=== PATIENT | female | born 1970 | race Caucasian/White ===

== ENCOUNTER 2018-04-14 15:59 | Emergency (ER) | payer MEDICAID ==
[~2018-04-14] VITALS: Ht 160 cm; Wt 110.2 kg
[~2018-04-14 15:59] MED LIST: ACET1TAB12 PO; ALBU8.5H8 IH
[2018-04-14 16:39] LABS: BASOPHILS # (AUTO) 0.1 X10'3 (0-0.2); BASOPHILS % (AUTO) 0.7 % (0-1); EOSINOPHILS # (AUTO) 0.1 X10'3 (0-0.9); EOSINOPHILS % (AUTO) 1.5 % (0-6); HEMATOCRIT 38.1 % (35.0-45.0); HEMOGLOBIN 12.8 g/dl (12.0-16.0); LYMPHOCYTES # (AUTO) 2.3 X10'3 (1.1-4.8); LYMPHOCYTES % (AUTO) 27.1 % (21-51); MEAN CORPUSCULAR HEMOGLOBIN 29.4 PG (27.0-31.0); MEAN CORPUSCULAR HGB CONC 33.5 % (33.0-36.5); MEAN CORPUSCULAR VOLUME 87.5 FL (78-98); MONOCYTES # (AUTO) 0.6 X10'3 (0-0.9); MONOCYTES % (AUTO) 6.6 % (2-12); NEUTROPHILS # (AUTO) 5.6 X10'3 (1.8-7.7); NEUTROPHILS % (AUTO) 64.1 % (42-75); PLATELET COUNT 246 X10'3 (140-440); RED BLOOD COUNT 4.35 X10'6 (4.20-5.60); RED CELL DISTRIBUTION WIDTH 17.3 % (11.5-14.5); WHITE BLOOD COUNT 8.7 X10'3 (4.5-11.0)
[2018-04-14 17:06] LABS: ALANINE AMINOTRANSFERASE 36 U/L (12-78); ALBUMIN 3.4 G/DL (3.4-5.0); ALBUMIN/GLOBULIN RATIO 0.9 (1.1-1.5); ALKALINE PHOSPHATASE 72 IU/L (46-116); AMYLASE 59 U/L (25-115); ANION GAP 10 (8-16); ASPARTATE AMINO TRANSFERASE 22 U/L (10-37); BILIRUBIN,TOTAL 0.4 MG/DL (0.1-1.0); BLOOD UREA NITROGEN 18 MG/DL (7-18); BUN/CREATININE RATIO 19.8 (6.6-38.0); CALCIUM 8.8 MG/DL (8.5-10.1); CHLORIDE 107 MMOL/L (99-107); CREATININE 0.91 MG/DL (0.40-0.90); GLUCOSE 85 MG/DL (70-104); LIPASE 348 U/L (73-393); POTASSIUM 3.9 MMOL/L (3.5-5.1); SODIUM 142 MMOL/L (135-145); TOTAL CARBON DIOXIDE 24.8 MMOL/L (24-32); TOTAL PROTEIN 7.2 G/DL (6.4-8.2); eGFR 66 ML/MIN
[2018-04-14 17:58] LABS: URINE HCG NEGATIVE (NEG)
[2018-04-14 18:01] LABS: CLARITY,URINE CLEAR (Clear); COLOR,URINE YELLOW (Yellow); GLUCOSE, URINE NEGATIVE (Neg); KETONES,URINE NEGATIVE (Neg); LEUKOCYTE ESTERASE ,URINE TRACE (Neg); NITRITES, URINE NEGATIVE (Neg); OCCULT BLOOD,URINE NEGATIVE (Neg); PH,URINE 5.5 (4.8-8.0); PROTEIN,URINE NEGATIVE (Neg); UROBILINOGEN,URINE 0.2 E.U/dL (0.2-1.0)
[2018-04-14 18:06] LABS: UA COLLECTION TYPE CLN CATCH MIDSTREAM
[2018-04-14 18:07] LABS: BACTERIA,URINE FEW /HPF (Neg); MUCUS STRANDS FEW /LPF (Neg); RBC,URINE 0-2 /HPF (0-2); SQUAMOUS EPITHELIAL CELL,UR FEW /LPF (FEW); WBC,URINE 0-4 /HPF (0-4)
[2018-04-14 19:56] VITALS: BP 113/48
== END 2018-04-14 19:58 | disposition home or self-care (01) ==
LOC: ER 16:00
DX: R10.12 Left upper quadrant pain (principal); R11.0 Nausea; R14.2 Eructation; G43.909 Migraine, unspecified, not intractable, without status migrainosus; Z98.890 Other specified postprocedural states; Z88.1 Allergy status to other antibiotic agents; Z91.018 Allergy to other foods; Z79.899 Other long term (current) drug therapy
CPT/HCPCS: 36415; 71045; 76700; 80053; 81001; 81025; 82150; 83690; 85025; 85610; 87088; 93005; 99285

== ENCOUNTER 2018-12-24 10:31 | Emergency (ER) | payer MEDICAID ==
[~2018-12-24] VITALS: Ht 160 cm; Wt 108.6 kg
[2018-12-24] MEDS ORDERED: ketorolac trometh inj. 60 MG/2 ML VIAL IM ONE (10:55)
[2018-12-24] MEDS: HYDROcodone/acetaminophen 10/325mg tab PO ONE ×2 (11:26→11:31)
[2018-12-24] MEDS ORDERED: ACET-3068 PO (12:19)
[2018-12-24 12:40] VITALS: BP 121/75
== END 2018-12-24 12:51 | disposition home or self-care (01) ==
LOC: ER 10:31
DX: S20.211A Contusion of right front wall of thorax, initial encounter (principal); S00.81XA Abrasion of other part of head, initial encounter; J45.909 Unspecified asthma, uncomplicated; K21.9 Gastro-esophageal reflux disease without esophagitis; F17.200 Nicotine dependence, unspecified, uncomplicated; F12.90 Cannabis use, unspecified, uncomplicated; F15.90 Other stimulant use, unspecified, uncomplicated; Z98.51 Tubal ligation status; Z88.1 Allergy status to other antibiotic agents; Z91.018 Allergy to other foods; Y04.8XXA Assault by other bodily force, initial encounter; Y93.89 Activity, other specified; Y92.89 Other specified places as the place of occurrence of the external cause; Y99.8 Other external cause status
CPT/HCPCS: 71046; 72040; 96372; 99283; J1885

== ENCOUNTER 2019-01-24 18:17 | Emergency (ER) | payer MEDICAID ==
[~2019-01-24] VITALS: Ht 160 cm; Wt 83.8 kg
[2019-01-24 18:30] VITALS: BP 165/129
[2019-01-24] MEDS ORDERED: acetaminophen 325mg tablet PO ONE (20:30)
== END 2019-01-24 20:44 | disposition home or self-care (01) ==
LOC: ER 18:17
DX: S06.0X0A Concussion without loss of consciousness, initial encounter (principal); S91.311A Laceration without foreign body, right foot, initial encounter; S21.219A Laceration without foreign body of unspecified back wall of thorax without penetration into thoracic cavity, initial encounter; S70.02XA Contusion of left hip, initial encounter; S40.022A Contusion of left upper arm, initial encounter; M79.18 Myalgia, other site; J45.909 Unspecified asthma, uncomplicated; K21.9 Gastro-esophageal reflux disease without esophagitis; E07.9 Disorder of thyroid, unspecified; F15.90 Other stimulant use, unspecified, uncomplicated; G47.30 Sleep apnea, unspecified; F12.90 Cannabis use, unspecified, uncomplicated; Z98.51 Tubal ligation status; Z98.890 Other specified postprocedural states; Z88.1 Allergy status to other antibiotic agents; Z79.899 Other long term (current) drug therapy; Y04.0XXA Assault by unarmed brawl or fight, initial encounter; Y93.89 Activity, other specified; Y92.89 Other specified places as the place of occurrence of the external cause; Y99.8 Other external cause status
CPT/HCPCS: 99282

== ENCOUNTER 2020-09-08 18:22 | Emergency (ER) | payer BC, MEDICAID ==
[~2020-09-08] VITALS: Ht 160 cm; Wt 100.0 kg
[2020-09-08 19:10] LABS: BASOPHILS # (AUTO) 0.1 X10'3 (0-0.2); BASOPHILS % (AUTO) 0.8 % (0-1); EOSINOPHILS # (AUTO) 0.1 X10'3 (0-0.9); EOSINOPHILS % (AUTO) 1.3 % (0-6); HEMATOCRIT 45.5 % (35.0-45.0); HEMOGLOBIN 15.3 g/dl (12.0-16.0); LYMPHOCYTES # (AUTO) 2.4 X10'3 (1.1-4.8); LYMPHOCYTES % (AUTO) 30.6 % (21-51); MEAN CORPUSCULAR HEMOGLOBIN 32.3 PG (27.0-31.0); MEAN CORPUSCULAR HGB CONC 33.7 g/dL (33.0-36.5); MEAN PLATELET VOLUME 7.4 FL (7.4-10.4); MONOCYTES # (AUTO) 0.6 X10'3 (0-0.9); MONOCYTES % (AUTO) 7.2 % (2-12); NEUTROPHILS # (AUTO) 4.7 X10'3 (1.8-7.7); NEUTROPHILS % (AUTO) 60.1 % (42-75); PLATELET COUNT 260 X10'3 (140-440); RED BLOOD COUNT 4.74 X10'6 (4.20-5.60); WHITE BLOOD COUNT 7.8 X10'3 (4.5-11.0)
[2020-09-08 19:13] LABS: CLARITY,URINE CLEAR (Clear); COLOR,URINE YELLOW (Yellow); GLUCOSE, URINE NEGATIVE (Neg); KETONES,URINE NEGATIVE (Neg); LEUKOCYTE ESTERASE ,URINE NEGATIVE (Neg); NITRITES, URINE NEGATIVE (Neg); OCCULT BLOOD,URINE TRACE-LYSED (Neg); PH,URINE 5.5 (4.8-8.0); PROTEIN,URINE NEGATIVE (Neg); UROBILINOGEN,URINE 0.2 E.U/dL (0.2-1.0)
[2020-09-08 19:21] LABS: UA COLLECTION TYPE CLN CATCH MIDSTREAM
[2020-09-08 19:23] LABS: BACTERIA,URINE FEW /HPF (Neg); RBC,URINE 0-2 /HPF (0-2); SQUAMOUS EPITHELIAL CELL,UR MODERATE /LPF (FEW)
[2020-09-08 19:24] LABS: ALANINE AMINOTRANSFERASE 25 U/L (12-78); ALBUMIN 3.9 G/DL (3.4-5.0); ALKALINE PHOSPHATASE 79 IU/L (46-116); ANION GAP 9 (8-16); ASPARTATE AMINO TRANSFERASE 14 U/L (10-37); BILIRUBIN,TOTAL 0.3 MG/DL (0.1-1.0); BLOOD UREA NITROGEN 19 MG/DL (7-18); BUN/CREATININE RATIO 23.2 (6.6-38.0); CALCIUM 9.7 MG/DL (8.5-10.1); CHLORIDE 104 MMOL/L (99-107); CREATININE 0.82 MG/DL (0.40-0.90); GLUCOSE 84 MG/DL (70-104); LIPASE 85 U/L (73-393); POTASSIUM 4.5 MMOL/L (3.5-5.1); SODIUM 138 MMOL/L (135-145); TOTAL PROTEIN 7.7 G/DL (6.4-8.2); eGFR 73 ML/MIN
--- NOTE | 2020-09-08 20:24 | NUR ---
pizano at bedside assessing patient
[2020-09-08 20:32] VITALS: BP 139/93
[2020-09-08] MEDS ORDERED: AMOX-422 PO (21:02)
[2020-09-08] MEDS ORDERED: LACT1TAB27 PO (21:02)
[2020-09-08] MEDS ORDERED: ONDA4TAB6 PO (21:02)
== END 2020-09-08 21:28 | disposition home or self-care (01) ==
LOC: ER 18:24
DX: K92.1 Melena (principal); R19.7 Diarrhea, unspecified; R10.84 Generalized abdominal pain; R11.0 Nausea; J45.909 Unspecified asthma, uncomplicated; K21.9 Gastro-esophageal reflux disease without esophagitis; F12.90 Cannabis use, unspecified, uncomplicated; F15.90 Other stimulant use, unspecified, uncomplicated; Z87.01 Personal history of pneumonia (recurrent); Z98.51 Tubal ligation status; Z98.890 Other specified postprocedural states; Z72.89 Other problems related to lifestyle; Z88.1 Allergy status to other antibiotic agents; Z91.018 Allergy to other foods; Z79.2 Long term (current) use of antibiotics; Z79.899 Other long term (current) drug therapy
CPT/HCPCS: 36415; 80053; 81001; 83690; 85025; 87088; 99283

== ENCOUNTER 2021-06-07 16:20 | Emergency (ER) | payer BC, SELFPAY ==
[~2021-06-07] VITALS: Ht 162.6 cm; Wt 100.0 kg
[~2021-06-07 16:20] MED LIST changes: +ALBU8.5H17 IH; -ALBU8.5H8 IH; +LACT1TAB27 PO; +ONDA4TAB6 PO
[2021-06-07 17:05] LABS: BASOPHILS % (AUTO) 0.4 % (0-1); EOSINOPHILS # (AUTO) 0.1 X10'3 (0-0.9); EOSINOPHILS % (AUTO) 1.4 % (0-6); HEMATOCRIT 41.8 % (35.0-45.0); HEMOGLOBIN 14.1 g/dl (12.0-16.0); LYMPHOCYTES # (AUTO) 1.5 X10'3 (1.1-4.8); LYMPHOCYTES % (AUTO) 15.1 % (21-51); MEAN CORPUSCULAR HGB CONC 33.8 g/dL (33.0-36.5); MEAN CORPUSCULAR VOLUME 97.8 FL (78-98); MEAN PLATELET VOLUME 7.7 FL (7.4-10.4); MONOCYTES # (AUTO) 0.6 X10'3 (0-0.9); MONOCYTES % (AUTO) 6.4 % (2-12); NEUTROPHILS # (AUTO) 7.4 X10'3 (1.8-7.7); NEUTROPHILS % (AUTO) 76.7 % (42-75); PLATELET COUNT 257 X10'3 (140-440); RED BLOOD COUNT 4.27 X10'6 (4.20-5.60); RED CELL DISTRIBUTION WIDTH 13.6 % (11.5-14.5); WHITE BLOOD COUNT 9.7 X10'3 (4.5-11.0)
[2021-06-07 17:07] LABS: CLARITY,URINE SLIGHTLY CLOUDY (Clear); COLOR,URINE YELLOW (Yellow); GLUCOSE, URINE NEGATIVE (Neg); KETONES,URINE TRACE mg/dl (Neg); LEUKOCYTE ESTERASE ,URINE TRACE (Neg); NITRITES, URINE NEGATIVE (Neg); OCCULT BLOOD,URINE TRACE-INTACT (Neg); PH,URINE 5.5 (4.8-8.0); PROTEIN,URINE TRACE mg/dl (Neg)
[2021-06-07 17:15] LABS: ALANINE AMINOTRANSFERASE 30 U/L (12-78); ALBUMIN 4.1 G/DL (3.4-5.0); ALBUMIN/GLOBULIN RATIO 1.1 (1.1-1.5); ALKALINE PHOSPHATASE 73 IU/L (46-116); ANION GAP 11 (8-16); ASPARTATE AMINO TRANSFERASE 19 U/L (10-37); BILIRUBIN,TOTAL 0.5 MG/DL (0.1-1.0); BLOOD UREA NITROGEN 20 MG/DL (7-18); BUN/CREATININE RATIO 16.4 (6.6-38.0); CALCIUM 9.2 MG/DL (8.5-10.1); CHLORIDE 106 MMOL/L (99-107); CREATININE 1.22 MG/DL (0.40-0.90); GLUCOSE 94 MG/DL (70-104); POTASSIUM 3.8 MMOL/L (3.5-5.1); SODIUM 144 MMOL/L (135-145); TOTAL CARBON DIOXIDE 27.2 MMOL/L (24-32); eGFR 46 ML/MIN
[2021-06-07 17:17] LABS: UA COLLECTION TYPE CLN CATCH MIDSTREAM
[2021-06-07 17:19] LABS: SQUAMOUS EPITHELIAL CELL,UR MANY /LPF (FEW)
[2021-06-07 17:20] LABS: CAL OXALATE CRYSTALS 4+ /HPF (NEGATIVE)
[2021-06-07 17:22] LABS: BACTERIA,URINE FEW /HPF (Neg)
[2021-06-07] MEDS ORDERED: NITR100C6 PO (21:27)
[2021-06-07] MEDS ORDERED: ACET-1059 PO (21:27)
[2021-06-07] MEDS ORDERED: ONDA4TAB12 PO (21:27)
[2021-06-07] MEDS ORDERED: FLO0.4C PO (21:27)
[2021-06-07 21:44] VITALS: BP 126/83
== END 2021-06-07 21:40 | disposition home or self-care (01) ==
LOC: ER 16:20
DX: N20.0 Calculus of kidney (principal); N39.0 Urinary tract infection, site not specified; J45.909 Unspecified asthma, uncomplicated; F12.10 Cannabis abuse, uncomplicated; F15.10 Other stimulant abuse, uncomplicated; Z88.1 Allergy status to other antibiotic agents; Z88.8 Allergy status to other drugs, medicaments and biological substances; Z91.018 Allergy to other foods
CPT/HCPCS: 36415; 74176; 80053; 81001; 85025; 99284

== ENCOUNTER 2025-02-01 03:36 | Emergency (ER) | payer BC, MEDICAID ==
[~2025-02-01] VITALS: Ht 160 cm; Wt 108.0 kg
[~2025-02-01 03:36] MED LIST changes: +NITR100C6 PO; +ONDA-243 PO
[2025-02-01 03:38] VITALS: TEMP 97
[2025-02-01] MEDS ORDERED: ROSU10TA72 PO (04:07)
[2025-02-01] MEDS ORDERED: ESOM20CA50 PO (04:07)
[2025-02-01] MEDS ORDERED: DAPS100T2 PO (04:07)
[2025-02-01] MEDS ORDERED: CHOL500049 PO (04:07)
[2025-02-01] MEDS ORDERED: ARA20T PO (04:07)
[2025-02-01 04:19] LABS: BASOPHILS % (AUTO) 0.9 % (0-1); EOSINOPHILS # (AUTO) 0.1 X10'3 (0-0.9); EOSINOPHILS % (AUTO) 2.4 % (0-6); HEMATOCRIT 42.3 % (35.0-45.0); HEMOGLOBIN 13.8 g/dl (12.0-16.0); LYMPHOCYTES # (AUTO) 1.5 X10'3 (1.1-4.8); LYMPHOCYTES % (AUTO) 30.2 % (21-51); MEAN CORPUSCULAR HGB CONC 32.6 g/dL (33.0-36.5); MEAN CORPUSCULAR VOLUME 95.1 FL (78-98); MEAN PLATELET VOLUME 8.8 FL (7.4-10.4); MONOCYTES # (AUTO) 0.5 X10'3 (0-0.9); MONOCYTES % (AUTO) 9.2 % (2-12); NEUTROPHILS # (AUTO) 2.9 X10'3 (1.8-7.7); NEUTROPHILS % (AUTO) 57.3 % (42-75); PLATELET COUNT 169 X10'3 (140-440); RED BLOOD COUNT 4.45 X10'6 (4.20-5.60); WHITE BLOOD COUNT 5.1 X10'3 (4.5-11.0)
[2025-02-01 04:31] LABS: ALANINE AMINOTRANSFERASE 32 U/L (12-78); ALBUMIN 3.5 G/DL (3.4-5.0); ALBUMIN/GLOBULIN RATIO 1.1 (1.1-1.5); ALKALINE PHOSPHATASE 90 IU/L (46-116); ANION GAP 8 (8-16); ASPARTATE AMINO TRANSFERASE 17 U/L (10-37); BILIRUBIN,TOTAL 0.5 MG/DL (0.1-1.0); BLOOD UREA NITROGEN 19 MG/DL (7-18); BUN/CREATININE RATIO 27.5 (10.0-20.0); CALCIUM 8.8 MG/DL (8.5-10.1); CHLORIDE 109 MMOL/L (99-107); CREATININE 0.69 MG/DL (0.40-0.90); GLUCOSE 110 MG/DL (70-104); LIPASE 41 U/L (16-77); POTASSIUM 4.2 MMOL/L (3.5-5.1); SODIUM 143 MMOL/L (135-145); TOTAL CARBON DIOXIDE 26.4 MMOL/L (24-32); TOTAL PROTEIN 6.8 G/DL (6.4-8.2); eCRCL 76 ML/MIN; eGFR 88 ML/MIN
[2025-02-01] MEDS: morphine 4 MG/ML inj SYRINge IV ONE ×2 (04:53→05:51)
[2025-02-01] MEDS: ringers solution, lacted 1,000 ML IV ONE (04:54)
[2025-02-01 05:05] LABS: BILIRUBIN,URINE NEGATIVE (Neg); CLARITY,URINE CLEAR (Clear); COLOR,URINE YELLOW (Yellow); GLUCOSE, URINE NEGATIVE (Neg); KETONES,URINE NEGATIVE (Neg); LEUKOCYTE ESTERASE ,URINE NEGATIVE (Neg); NITRITES, URINE NEGATIVE (Neg); OCCULT BLOOD,URINE NEGATIVE (Neg); PROTEIN,URINE NEGATIVE (Neg); UROBILINOGEN,URINE 0.2 E.U/dL (0.2-1.0)
[2025-02-01 05:06] LABS: URINE HCG NEGATIVE (NEG)
[2025-02-01 05:07] LABS: UA COLLECTION TYPE CLN CATCH MIDSTREAM
[2025-02-01] MEDS: mag hydrox/Alum hydrox/simeth 30ml oral suspension PO ONE (05:50)
[2025-02-01] MEDS: pantoprazole 40 MG vial IV ONE (05:51)
[2025-02-01] MEDS: acetaminophen 325mg tablet PO ONE (05:51)
[2025-02-01 07:08] VITALS: BP 176/100; PULSE 80; RESP 15; O2SAT 95
[2025-02-01] MEDS ORDERED: iohexol 300mg/ml 100ml inj. ONE (08:00)
== END 2025-02-01 07:09 | disposition home or self-care (01) ==
LOC: ER 03:37
DX: K80.70 Calculus of gallbladder and bile duct without cholecystitis without obstruction (principal); J45.909 Unspecified asthma, uncomplicated; G47.30 Sleep apnea, unspecified; K21.9 Gastro-esophageal reflux disease without esophagitis; F12.90 Cannabis use, unspecified, uncomplicated; F15.90 Other stimulant use, unspecified, uncomplicated; Z87.442 Personal history of urinary calculi; Z88.1 Allergy status to other antibiotic agents; Z98.51 Tubal ligation status; Z91.018 Allergy to other foods; Z79.899 Other long term (current) drug therapy; Z98.890 Other specified postprocedural states
CPT/HCPCS: 36415; 74177; 80053; 81003; 81025; 83690; 85025; 96361; 96374; 96375; 96376; 99285; J2270; J2470; J7120; Q9967

== ENCOUNTER 2025-02-06 02:17 | Inpatient (IN) | payer MEDICAID ==
[~2025-02-06] VITALS: Ht 160 cm; Wt 126.3 kg
[2025-02-06] VITALS (15 sets, daily range): BP systolic 107–162; BP diastolic 48–90; PULSE 70–82; RESP 12–20; TEMP 96.9–98.7; O2SAT 92–98
[~2025-02-06 02:17] MED LIST changes: -ACET1TAB12 PO; -ALBU8.5H17 IH; +ARA20T PO; +CHOL500049 PO; +DAPS100T2 PO; +ESOM20CA50 PO; -LACT1TAB27 PO; -NITR100C6 PO; -ONDA-243 PO; -ONDA4TAB6 PO; +ROSU10TA72 PO
[2025-02-06 02:45] LABS: BASOPHILS # (AUTO) 0.1 X10'3 (0-0.2); BASOPHILS % (AUTO) 0.9 % (0-1); EOSINOPHILS # (AUTO) 0.2 X10'3 (0-0.9); EOSINOPHILS % (AUTO) 2.9 % (0-6); HEMATOCRIT 41.2 % (35.0-45.0); HEMOGLOBIN 14.1 g/dl (12.0-16.0); LYMPHOCYTES # (AUTO) 1.8 X10'3 (1.1-4.8); LYMPHOCYTES % (AUTO) 29.9 % (21-51); MEAN CORPUSCULAR HEMOGLOBIN 32.1 PG (27.0-31.0); MEAN CORPUSCULAR HGB CONC 34.1 g/dL (33.0-36.5); MEAN CORPUSCULAR VOLUME 94.1 FL (78-98); MEAN PLATELET VOLUME 8.6 FL (7.4-10.4); MONOCYTES # (AUTO) 0.5 X10'3 (0-0.9); MONOCYTES % (AUTO) 9.1 % (2-12); NEUTROPHILS # (AUTO) 3.4 X10'3 (1.8-7.7); NEUTROPHILS % (AUTO) 57.2 % (42-75); PLATELET COUNT 177 X10'3 (140-440); RED BLOOD COUNT 4.38 X10'6 (4.20-5.60); RED CELL DISTRIBUTION WIDTH 14.1 % (11.5-14.5); WHITE BLOOD COUNT 5.9 X10'3 (4.5-11.0)
[2025-02-06 03:00] LABS: ALANINE AMINOTRANSFERASE 42 U/L (12-78); ALBUMIN 3.6 G/DL (3.4-5.0); ALBUMIN/GLOBULIN RATIO 1.1 (1.1-1.5); ALKALINE PHOSPHATASE 101 IU/L (46-116); ANION GAP 6 (8-16); ASPARTATE AMINO TRANSFERASE 21 U/L (10-37); BILIRUBIN,TOTAL 0.4 MG/DL (0.1-1.0); BLOOD UREA NITROGEN 16 MG/DL (7-18); BUN/CREATININE RATIO 19.5 (10.0-20.0); CALCIUM 8.5 MG/DL (8.5-10.1); CHLORIDE 109 MMOL/L (99-107); CREATININE 0.82 MG/DL (0.40-0.90); GLUCOSE 121 MG/DL (70-104); LIPASE 44 U/L (16-77); POTASSIUM 4.3 MMOL/L (3.5-5.1); SODIUM 141 MMOL/L (135-145); TOTAL CARBON DIOXIDE 25.8 MMOL/L (24-32); TOTAL PROTEIN 6.9 G/DL (6.4-8.2); eCRCL 64 ML/MIN; eGFR 72 ML/MIN
[2025-02-06] MEDS: ondansetron 4mg rapidly disintigrating tab PO ONE (03:11)
[2025-02-06] MEDS: LIDOcaine 2% Viscous 15ml cup MM ONE (03:12)
[2025-02-06] MEDS: mag hydrox/Alum hydrox/simeth 30ml oral suspension PO ONE (03:12)
[2025-02-06 03:23] LABS: BILIRUBIN,URINE SMALL (Neg); CLARITY,URINE CLEAR (Clear); COLOR,URINE YELLOW (Yellow); GLUCOSE, URINE 100 mg/dl (Neg); KETONES,URINE TRACE mg/dl (Neg); LEUKOCYTE ESTERASE ,URINE NEGATIVE (Neg); OCCULT BLOOD,URINE NEGATIVE (Neg); PH,URINE 5.5 (4.8-8.0); PROTEIN,URINE 30 mg/dl (Neg); UROBILINOGEN,URINE 0.2 E.U/dL (0.2-1.0)
[2025-02-06 03:24] LABS: NITRITES, URINE NEGATIVE (Neg)
[2025-02-06 03:25] LABS: BACTERIA,URINE 3+ /HPF (Neg); RBC,URINE 0-2 /HPF (0-2); SQUAMOUS EPITHELIAL CELL,UR MANY /LPF (FEW); UA COLLECTION TYPE CLN CATCH MIDSTREAM; WBC,URINE 0-4 /HPF (0-4)
[2025-02-06 03:34] LABS: URINE AMPHETAMINE SCREEN NEGATIVE (Neg); URINE BARBITUATE SCREEN NEGATIVE (Neg); URINE BENZODIAZEPINES SCREEN NEGATIVE (Neg); URINE CANNABINOID SCREEN NEGATIVE (Neg); URINE COCAINE SCREEN NEGATIVE (Neg); URINE METHADONE SCREEN NEGATIVE (Neg); URINE OPIATE SCREEN NEGATIVE (Neg); URINE PHENCYCLIDINE SCREEN NEGATIVE (Neg)
[2025-02-06] MEDS: ketorolac trometh 15mg/ml vial 15 MG/ML ML IV ONE (03:58)
[2025-02-06] MEDS: fentaNYL/PF 50MCG/1 ML 2ML syringe IV ONE (04:21)
[2025-02-06] MEDS ORDERED: morphine 2 MG/ML inj. syringe IV PRN ×3 (08:30→15:50)
[2025-02-06] MEDS ORDERED: potassium Cl 40MEQ/1/2NS 520ml 520 ML IV PRN (08:40)
[2025-02-06] MEDS ORDERED: ondansetron/PF 4mg/2ml inj IV PRN (08:40)
[2025-02-06] MEDS ORDERED: potassium Cl 20 mEq SR tablet PO PRN ×2 (08:40)
[2025-02-06] MEDS ORDERED: magnesium sulf-water 4G/100mL 100 ML IV PRN (08:40)
[2025-02-06] MEDS ORDERED: magnesium hydroxide 30ml (MOM) UD suspension PO PRN (08:40)
[2025-02-06] MEDS ORDERED: mag hydrox/Alum hydrox/simeth 30ml oral suspension PO PRN (08:40)
[2025-02-06] MEDS ORDERED: magnesium sulf-water 2g/50mL 50 ML IV PRN (08:40)
[2025-02-06] MEDS ORDERED: magnesium Cl slow-release 64mg tablet PO PRN (08:40)
[2025-02-06] MEDS: piperacillin/tazo 3.375gm/50ml 50 ML IV ONE (08:46)
[2025-02-06] MEDS: normal saline 1000ml 1,000 ML IV SCH (08:53)
[2025-02-06] MEDS: dextrose 5%-1/2 normal saline 1,000 ML IV ONE (08:57)
[2025-02-06 09:36] LABS: APTT 25 SECONDS (22-32); PROTHROMBIN TIME 10.2 SECONDS (9.0-12.0)
[2025-02-06 09:44] LABS: MAGNESIUM 2.1 MG/DL (1.5-2.4)
[2025-02-06] MEDS ORDERED: BUPIVAcaine 2.5mg/ml inj 50ml vial (contains preservative) ONE (10:41)
[2025-02-06] MEDS ORDERED: LIDOcaine 1% (10mg/ml)w/preservative inj. 20ml MDV ONE (10:41)
[2025-02-06 10:52] LABS: CHOL/HDL RATIO 4.7 (0.00-4.99); CHOLESTEROL 194 MG/DL (0-200); HDL CHOLESTEROL 41 MG/DL (35-60); LDL CHOLESTEROL 85 MG/DL (50-100); TRIGLYCERIDES 476 MG/DL (20-135)
[2025-02-06 11:43] LABS: HEMOGLOBIN A1C 4.5 % (4.5-6.2)
[2025-02-06] MEDS ORDERED: HYDR200T73 PO (11:45)
[2025-02-06 12:58] LABS: FREE T4 (FREE THYROXINE) 0.74 NG/DL (0.73-1.40); THYROID STIMULATING HORMONE 0.99 ulU/ml (0.34-4.50)
[2025-02-06] MEDS: INDOCYANINE GREEN 25 MG/10 ML VIAL IV ONE (14:36)
[2025-02-06 15:49] LABS: PREOP URINE HCG NEGATIVE (NEGATIVE)
[2025-02-06] MEDS ORDERED: enalaprilat 1.25mg/ml 2ml vial IV PRN (15:50)
[2025-02-06] MEDS ORDERED: morphine 4 MG/ML inj SYRINge IV PRN (15:50)
[2025-02-06] MEDS ORDERED: meperidine/PF 25mg/ml syringe IV PRN ×2 (15:50)
[2025-02-06] MEDS ORDERED: labetalol 20mg/4ml (5mg/ml) syringe IV PRN (15:50)
[2025-02-06] MEDS ORDERED: proCHLORperazine 10 MG/2 ml inj IV PRN (15:50)
[2025-02-06] MEDS ORDERED: sevoflurane 250ml liquid IH ONE (16:27)
[2025-02-06] MEDS ORDERED: fentaNYL /PF 50mcg/ml 5ml ampule ONE (16:36)
[2025-02-06] MEDS ORDERED: midazolam 1 mg/ML 2ml injection ONE (16:36)
[2025-02-06] MEDS ORDERED: rocuronium 10mg/ml inj IV ONE (16:52)
[2025-02-06] MEDS ORDERED: propofol inj 20 ML IV ONE (16:52)
[2025-02-06] MEDS ORDERED: LIDOcaine 1%/PF 5ML 10 MG/ML VIAL ONE (16:52)
[2025-02-06] MEDS ORDERED: ceFAZolin 1000mg inj ONE ×3 (17:08)
[2025-02-06] MEDS: LIDOcaine 1% 30ml preserv. free vial IJ ONE (17:10)
[2025-02-06] MEDS ORDERED: sugammadex 200mg/2ml injection IV ONE (17:46)
[2025-02-06] MEDS ORDERED: acetaminophen 1,000mg/100ml IV 100 ML IV ONE (17:55)
[2025-02-06] MEDS ORDERED: acetaminophen 1,000mg/100ml IV 0 ML IV ONE (17:55)
[2025-02-06] MEDS ORDERED: naloxone 0.4 mg/ml inj IV PRN (18:05)
[2025-02-06] MEDS ORDERED: HYDROcodone/acetaminophen 10/325mg tab PO PRN (18:05)
[2025-02-06] MEDS ORDERED: HYDROcodone/acetaminophen 5mg/325mg tablet PO PRN (18:05)
[2025-02-06] MEDS ORDERED: meperidine/PF 25mg/ml syringe ONE (18:38)
[2025-02-06] MEDS: meperidine/PF 25mg/ml syringe IV PRN (18:42)
[2025-02-06] MEDS: ondansetron/PF 4mg/2ml inj IV PRN (18:43)
[2025-02-06] MEDS: ringers solution, lacted 1,000 ML IV SCH (19:00)
[2025-02-06] MEDS: K and/or MAG REPLACEMENT MC SCH (20:00)
[2025-02-06] MEDS: docusate sod 100mg capsule PO SCH (20:28)
[2025-02-06] MEDS: heparin, porcine 5000 units/ml vial SQ SCH (20:28)
[2025-02-06] MEDS: nystatin 15 GM powder TP SCH (20:28)
[2025-02-06] MEDS: atorvastatin 20mg tablet PO SCH (20:28)
[2025-02-06] MEDS: morphine 2 MG/ML inj. syringe IV PRN (20:28)
[2025-02-07 02:34] VITALS: BP 136/77; PULSE 81; RESP 16; TEMP 98.1; O2SAT 94
[2025-02-07 04:54] LABS: BASOPHILS % (AUTO) 0.4 % (0-1); EOSINOPHILS % (AUTO) 0 % (0-6); HEMATOCRIT 40.3 % (35.0-45.0); HEMOGLOBIN 13.5 g/dl (12.0-16.0); LYMPHOCYTES # (AUTO) 0.6 X10'3 (1.1-4.8); LYMPHOCYTES % (AUTO) 10.3 % (21-51); MEAN CORPUSCULAR HEMOGLOBIN 31.6 PG (27.0-31.0); MEAN CORPUSCULAR HGB CONC 33.5 g/dL (33.0-36.5); MEAN CORPUSCULAR VOLUME 94.5 FL (78-98); MEAN PLATELET VOLUME 8.7 FL (7.4-10.4); MONOCYTES # (AUTO) 0.1 X10'3 (0-0.9); MONOCYTES % (AUTO) 1.3 % (2-12); NEUTROPHILS # (AUTO) 5.5 X10'3 (1.8-7.7); PLATELET COUNT 163 X10'3 (140-440); RED BLOOD COUNT 4.27 X10'6 (4.20-5.60); RED CELL DISTRIBUTION WIDTH 14.1 % (11.5-14.5); WHITE BLOOD COUNT 6.3 X10'3 (4.5-11.0)
[2025-02-07 05:23] LABS: ALANINE AMINOTRANSFERASE 48 U/L (12-78); ALBUMIN 3.6 G/DL (3.4-5.0); ALBUMIN/GLOBULIN RATIO 1.1 (1.1-1.5); ALKALINE PHOSPHATASE 91 IU/L (46-116); ANION GAP 8 (8-16); ASPARTATE AMINO TRANSFERASE 30 U/L (10-37); BILIRUBIN,TOTAL 0.7 MG/DL (0.1-1.0); BLOOD UREA NITROGEN 11 MG/DL (7-18); BUN/CREATININE RATIO 16.9 (10.0-20.0); CALCIUM 8.7 MG/DL (8.5-10.1); CHLORIDE 108 MMOL/L (99-107); CREATININE 0.65 MG/DL (0.40-0.90); GLUCOSE 132 MG/DL (70-104); MAGNESIUM 2.1 MG/DL (1.5-2.4); POTASSIUM 4.5 MMOL/L (3.5-5.1); SODIUM 142 MMOL/L (135-145); TOTAL PROTEIN 6.9 G/DL (6.4-8.2); eCRCL 81 ML/MIN; eGFR > 90 ML/MIN
[2025-02-07 06:00] VITALS: BP 152/80; PULSE 77; RESP 16; TEMP 98.5; O2SAT 94
[2025-02-07] MEDS: DAPSONE 100 MG TABLET PO SCH (08:00)
[2025-02-07] MEDS ORDERED: atorvastatin 20mg tablet PO SCH (08:00)
[2025-02-07] MEDS: leflunomide 20mg tablet PO SCH (08:00)
[2025-02-07] MEDS ORDERED: non-formulary drug (Cholecalciferol (Vitamin D3) (Vitamin D3) 1 CAP) PO SCH (08:00)
[2025-02-07] MEDS: hydroxychloroquine 200mg tablet PO SCH (09:13)
[2025-02-07] MEDS: pantoprazole 40mg Tablet.DR PO SCH (09:13)
[2025-02-07] MEDS: acetaminophen 325mg tablet PO PRN (10:53)
[2025-02-07 11:31] VITALS: BP 129/56; PULSE 80; RESP 15; TEMP 98.4; O2SAT 98
[2025-02-07 13:15] VITALS: BP 148/85; PULSE 85; RESP 18; TEMP 97.9; O2SAT 95
[2025-02-07] MEDS ORDERED: leflunomide 20mg tablet PO SCH (13:42)
[2025-02-07 15:07] VITALS: RESP 15; O2SAT 98
[2025-02-07 15:17] VITALS: RESP 18; O2SAT 95
[2025-02-08] MEDS ORDERED: fenofibrate 145mg tablet PO SCH (08:30)
== END 2025-02-07 21:50 | disposition left against medical advice (07) | DRG 263 ==
LOC: ER 02:18 → ED HOLD 08:43 → ORTHO 4S 11:09
PROVIDERS: ADMIT Family Medicine; ATTEND Family Medicine
PROC: 8E0W4CZ Robotic Assisted Procedure of Trunk Region, Percutaneous Endoscopic Approach (ICD-10-PCS; 2025-02-06)
PROC: BF522Z0 Other Imaging of Gallbladder using Fluorescing Agent, Intraoperative (ICD-10-PCS; 2025-02-06)
PROC: 0FT44ZZ Resection of Gallbladder, Percutaneous Endoscopic Approach (ICD-10-PCS; principal; 2025-02-06 16:27)
DX: K80.00 Calculus of gallbladder with acute cholecystitis without obstruction (principal); E04.1 Nontoxic single thyroid nodule; E66.813 Obesity, class 3; E78.5 Hyperlipidemia, unspecified; M06.9 Rheumatoid arthritis, unspecified; Z53.21 Procedure and treatment not carried out due to patient leaving prior to being seen by health care provider; K21.9 Gastro-esophageal reflux disease without esophagitis; J45.909 Unspecified asthma, uncomplicated; Z88.8 Allergy status to other drugs, medicaments and biological substances; Z79.899 Other long term (current) drug therapy; Z88.1 Allergy status to other antibiotic agents; Z98.891 History of uterine scar from previous surgery; Z68.42 Body mass index [BMI] 45.0-49.9, adult
CPT/HCPCS: 36415; 71045; 76700; 80053; 80061; 80305; 81001; 81025; 82948; 83036; 83690; 83735; 84439; 84443; 84484; 85025; 85610; 85730; 87081; 93005; 96374; 96375; 99285; A4215; A4615; A4618; A6258; A7000; G0378; J0131; J0690; J1100; J1644; J1885; J2003; J2175; J2250; J2270; J2405; J2543; J2704; J3010; J3490; J7030; J7120

== ENCOUNTER 2025-08-11 17:44 | Emergency (ER) | payer MEDICAID ==
[~2025-08-11] VITALS: Ht 157.5 cm; Wt 127.0 kg
[~2025-08-11 17:44] MED LIST changes: +HYDR200T73 PO; -ROSU10TA72 PO; +ROSU10TA98 PO
[2025-08-11 17:50] VITALS: BP 173/98; PULSE 102; RESP 16; TEMP 98.4; O2SAT 94
--- NOTE | 2025-08-11 18:08 | Physician Documentation ---
HPI ~ General Chief Complaint: Tooth Problem Stated Complaint: TOOTH PAIN Time Seen by MD: 18:08 Primary Medical Doctor: [facility] History of Present Illness HPI Comment Pleasant 55-year-old female that reports to the emergency department for evaluation of tooth pain . Reports pain is in her lower left jaw at approximately the 2nd molar. Patient reports she has had fillings and broken teeth on the affected side. Patient reports that she does have a dental appointment but she is very far down the list. Patient reports she has had swelling at the site accompanied by pain. Patient denies any fever chills nause a vomiting diarrhea at this time. Any difficulty swallowing difficulty breathing or any other symptoms at this time. Medication Reconciliation Allergies: Coded Allergies: avocado (Verified Allergy, Unknown, 02/01/25) azithromycin (Verified Allergy, Unknown, 02/01/25) wheat (Verified Adverse Reaction, Severe, diarrhea, 02/01/25) Erythromycin Lactobionate (Verified Adverse Reaction, Mild, ABD CRAMP, 02/06/25) Scheduled Cholecalciferol (Vitamin D3) (Vitamin D3), 1 CAP PO DAILY, (Reported) Dapsone (Dapsone), 1 TAB PO DAILY, (Reported) Esomeprazole Magnesium (Esomeprazole Magnesium), 1 CAP PO DAILY, (Reported) Hydroxychloroquine Sulfate* (Plaquenil*), 200 MG PO DAILY, (Reported) Leflunomide (Leflunomide), 1 TAB PO DAILY, (Reported) Rosuvastatin Calcium (Rosuvastatin Calcium), 1 TAB PO HS, (Reported) Past Medical History Past Medical History: Asthma, Bronchitis, Pneumonia, Sleep Apnea, GERD, Thyroid (unspecified) Past Surgical History: , orthopedic surgeries, tubal ligation Alcohol Use: Occasionally Drug Use: marijuana, methamphetamine Lives with: Family Lives In: Home Review of Systems ROS As stated above in the HPI, otherwise all systems are reviewed and negative. Physical Exam Vital Signs: Temperature: 98.4, Source: Oral, Heart Rate: 102, Respiratory Rate: 16, BP: 173/98, Pulse Oximetry: 94, Weight: 127.000 Oxygen Flow Rate: 0 Physical Exam VITALS: Reviewed and as above. GENERAL: Alert, no apparent distress. HEENT: Normocephalic, atraumatic, PERRL, EOMI, dry mucosa, no erythema, swelling noted to the right cheek and submandibular lymph nodes on the associated side. RESPIRATORY: Lungs clear, normal breath sounds, no respiratory distress. CHEST: No accessory muscle use, no retractions CV: Regular rate, rhythm, no edema, no murmur, No: JVD GI: Soft, non-tender, bowels sounds present, no rebound, guarding, or rigidity BACK: No CVA tenderness, or swelling MUSCULOSKELETAL No deformities, no edema SKIN: Warm and dry, no rash NEURO: Oriented x4, No motor or sensory deficit PSYCH: Normal mood and affect, no agitation Progress Results/Orders Results/Orders Vital Signs 08/11/25 17:50 Temp 98.4 Pulse 102 Resp 16 B/P (MAP) 173/98 Pulse Ox 94 O2 Flow Rate 0 Medical Decision Making Additional information obtaine: other Findings 55-year-old female presented to the ED with progressively worsening right upper jaw pain associated with wisdom tooth eruption and possible impaction, radiating to the ear. She is scheduled for dental evaluation but faces delayed access. She denies difficulty swallowing, shortness of breath, or other systemic symptoms. Assessment: Odontogenic pain likely secondary to wisdom tooth impaction. No evidence of airway compromise, facial swelling, trismus, or systemic involvement. No signs of local or systemic spread of infection. Medical Decision-Making: Analgesia: Per [employer] guidelines, first-line management is NSAIDs (e.g., ibuprofen 400 mg or naproxen sodium 440 mg) alone or in combination with acetaminophen (e.g., 500 mg), unless contraindicated. Opioids are reserved for rare cases where pain is not controlled with non-opioid therapy or NSAIDs are contraindicated, and should be prescribed at the lowest effective dose and shortest duration if needed. Antibiotics: Augmentin prescribed to the patient. First dose given here in the emergency department. Local/Topical Anesthetics: Considered for immediate pain relief if available, but do not replace systemic analgesics. Follow-up: Patient instructed to monitor for red flag symptoms (new/worsening swelling, dysphagia, dyspnea, fever, trismus) and to return if these develop. Advised to seek definitive dental care as soon as possible and to contact provider if pain worsens or dental follow-up is not possible within 23 days. Disposition: Safe for discharge with evidence-based analgesic regimen, education on warning signs, and dental referral. No indication for antibiotics or advanced imaging at this time. Differential Dx:Considerations: Include: Alveolar fracture, Alveolar osteitis, ANUG, Facial Cellulitis, Periapical abscess, Peridontal abscess, Post-extraction bleeding, Pulpitis, Tooth avulsion, Tooth eruption, Tooth Fracture, Trigeminal neuralgia, Tooth subluxation, Other Departure Disposition: 01 HOME / SELF CARE / HOMELESS Impression: Primary Impression: Toothache Additional Impression: Dental abscess Condition: Stable Discharge Instructions: Dental Caries, Adult, Dental Abscess, Dental Pain Additional Instructions: You were seen in the emergency department for pain in your upper right jaw related to wisdom tooth eruption and possible impaction. You received a dose of ketorolac (Toradol), a nonsteroidal anti-inflammatory drug (NSAID), to help control your pain. You were also given your first dose of amoxicillin- clavulanate (Augmentin), an antibiotic used to treat possible dental infections. What to expect: Pain relief from ketorolac usually begins within an hour and can last several hours. The antibiotic will help treat any infection that may be present. It is important to finish the entire course as prescribed, even if you start to feel better. At-home pain management: For ongoing pain, you may use [id number] NSAIDs (such as ibuprofen or naproxen) or acetaminophen as directed on the package, unless you have been told by a doctor to avoid these medications. Combining an NSAID with acetaminophen can further improve pain control. Do not exceed the maximum daily doses: 2,400 mg for ibuprofen, 1,100 mg for naproxen sodium, and 4,000 mg for acetaminophen. Antibiotic instructions: Take amoxicillin-clavulanate (Augmentin) exactly as prescribed until the course is finished. If you develop a rash, severe diarrhea, or trouble breathing, stop the medication and seek medical attention immediately. Follow-up: It is important to see a dentist as soon as possible for definitive treatment. If you cannot get a dental appointment within 23 days, or if your pain does not improve, contact your healthcare provider. When to return to the emergency department: If you develop new or worsening swelling of your face or jaw If you have trouble swallowing, breathing, or opening your mouth If you develop a fever or feel generally unwell Other instructions: Avoid chewing on the affected side and stick to soft foods. Keep the area clean by gently rinsing with warm salt water. Medication safety: Do not take additional ketorolac unless specifically prescribed. Avoid NSAIDs if you have a history of stomach ulcers, kidney problems, or bleeding disorders, unless cleared by your doctor. If you have any questions or concerns, or if your symptoms worsen, please seek medical attention promptly. Referrals: NO PRIMARY CARE PROVIDER (PCP) Prescriptions Amox Tr/Potassium Clavulanate (Augmentin 875-125 Tablet) 1 Each Tablet 1 TAB PO Q12H for 10 Days, #20 TAB Prov: TERESITA ASENCIO 08/11/25 Education Educated: Patient Educated regarding: diagnosis, treatment, need for follow up Signature Scribe Signature: A Attestation: Scribed for Teresita Asencio by BRIDGETT Zaragoza . 08/11/25 19:24 TERESITA ASENCIO Aug 11, 2025 18:08
[2025-08-11] MEDS ORDERED: AMOX-117 PO (19:22)
[2025-08-11] MEDS: amox tr/potassium clavulanate 875/125mg TAB PO ONE (19:31)
[2025-08-11] MEDS: ketorolac trometh 30MG/ML vial 30 MG/ML VIAL IM ONE (19:31)
== END 2025-08-11 20:09 | disposition home or self-care (01) ==
LOC: ER 17:45
DX: K04.7 Periapical abscess without sinus (principal); G47.30 Sleep apnea, unspecified; K21.9 Gastro-esophageal reflux disease without esophagitis; J45.909 Unspecified asthma, uncomplicated; F12.90 Cannabis use, unspecified, uncomplicated; F15.90 Other stimulant use, unspecified, uncomplicated; Z88.1 Allergy status to other antibiotic agents; Z98.51 Tubal ligation status
CPT/HCPCS: 96372; 99283; J1885